=== PATIENT | female | born 1985 | race African-American/Black ===

== ENCOUNTER 2024-06-27 21:33 | Emergency (ER) | payer MEDICAID ==
[~2024-06-27] VITALS: Ht 157.5 cm; Wt 62.0 kg
[2024-06-27 22:18] VITALS: TEMP 98.3; O2SAT 100
[2024-06-27] MEDS ORDERED: LIDOCAINE HCL/EPINEPHRINE 1%-EPI 1:100,000 20ML VIAL INFIL ONE (23:15)
[2024-06-28 02:14] VITALS: BP 128/76; PULSE 80; RESP 18; O2SAT 100
== END 2024-06-28 02:21 | disposition home or self-care (01) ==
LOC: ER 21:33
DX: S41.111A Laceration without foreign body of right upper arm, initial encounter (principal); X58.XXXA Exposure to other specified factors, initial encounter; Y93.89 Activity, other specified; Y92.89 Other specified places as the place of occurrence of the external cause; Y99.8 Other external cause status
CPT/HCPCS: 99283; 12002; 73090; J3490

== ENCOUNTER 2024-06-30 13:02 | Emergency (ER) | payer MEDICAID ==
[~2024-06-30] VITALS: Ht 160 cm; Wt 61.2 kg
[2024-06-30 13:16] VITALS: BP 128/76; PULSE 80; RESP 16; TEMP 98.2; O2SAT 99
[2024-06-30] MEDS: BACITRACIN 14GM TUBE TOP ONE (15:37)
== END 2024-06-30 15:38 | disposition home or self-care (01) ==
LOC: ER 13:02
DX: S41.111D Laceration without foreign body of right upper arm, subsequent encounter (principal); X58.XXXD Exposure to other specified factors, subsequent encounter
CPT/HCPCS: 99282

== ENCOUNTER 2024-07-07 10:04 | Emergency (ER) | payer MEDICAID ==
[~2024-07-07] VITALS: Ht 160 cm; Wt 59.0 kg
[2024-07-07 10:14] VITALS: O2SAT 99
[2024-07-07] MEDS ORDERED: BO1 TP (11:02)
[2024-07-07] MEDS: BACITRACIN ZINC OINT UDPKT TOP ONE (11:07)
[2024-07-07 11:21] VITALS: BP 116/68; PULSE 80; RESP 18; TEMP 36.66960; O2SAT 99
== END 2024-07-07 11:23 | disposition home or self-care (01) ==
LOC: ER 10:16
DX: S51.811D Laceration without foreign body of right forearm, subsequent encounter (principal); Z48.00 Encounter for change or removal of nonsurgical wound dressing; X58.XXXD Exposure to other specified factors, subsequent encounter
CPT/HCPCS: 99282; Z7610

== ENCOUNTER 2024-07-16 07:53 | Emergency (ER) | payer MEDICAID ==
[~2024-07-16] VITALS: Ht 157.5 cm; Wt 62.0 kg
[~2024-07-16 07:53] MED LIST: BO1 TP
[2024-07-16 07:57] VITALS: O2SAT 99
[2024-07-16] MEDS ORDERED: CLIN-194 MT (08:15)
[2024-07-16 08:28] VITALS: BP 118/78; PULSE 98; RESP 16; TEMP 36.89184; O2SAT 99
== END 2024-07-16 10:12 ==
LOC: ER 07:53
DX: S41.111D Laceration without foreign body of right upper arm, subsequent encounter (principal); Z48.02 Encounter for removal of sutures; Z48.00 Encounter for change or removal of nonsurgical wound dressing; X58.XXXD Exposure to other specified factors, subsequent encounter
CPT/HCPCS: 99283

== ENCOUNTER 2024-07-24 09:09 | Emergency (ER) | payer MEDICAID ==
[~2024-07-24] VITALS: Ht 157.5 cm; Wt 61.0 kg
[~2024-07-24 09:09] MED LIST changes: +CLIN-194 MT
[2024-07-24 09:16] VITALS: BP 112/76; RESP 18; TEMP 98.2; O2SAT 100
[2024-07-24 09:19] VITALS: PULSE 83; O2SAT 100
== END 2024-07-24 11:31 | disposition home or self-care (01) ==
LOC: ER 09:09
DX: S51.811D Laceration without foreign body of right forearm, subsequent encounter (principal); X58.XXXD Exposure to other specified factors, subsequent encounter
CPT/HCPCS: 99284; Z7610